=== PATIENT | female | born 1945 | race Caucasian/White ===

== ENCOUNTER 2018-05-02 07:06 | Day surgery (SDC) | payer MEDICARE ==
[~2018-05-02] VITALS: Ht 162.6 cm; Wt 129.3 kg
[2018-05-02] VITALS (7 sets, daily range): BP systolic 103–124; BP diastolic 48–63; PULSE 71–88; TEMP 97.3–98.4
[2018-05-02 08:14] LABS: CALCIUM 11.1 mg/dL (8.4-10.2); CREATININE, serum 0.74 mg/dL (0.52-1.25); POTASSIUM 4.6 mmol/L (3.4-5.0)
[2018-05-02] MEDS ORDERED: GLUCOSAMINE & C1 CA2 PO (08:19)
[2018-05-02] MEDS ORDERED: NATURAL E400 IU PO (08:20)
[2018-05-02] MEDS ORDERED: LEXAPRO 10MG10 MG PO (08:20)
[2018-05-02] MEDS ORDERED: ZANTAC 150150 MG PO (08:21)
[2018-05-02] MEDS ORDERED: LIPITOR 10MG10 MG PO (08:21)
[2018-05-02] MEDS ORDERED: MOBIC15 MG PO (08:21)
[2018-05-02] MEDS ORDERED: PRINZIDE 12.5 M1 TA1 PO (08:22)
[2018-05-02] MEDS ORDERED: ULTRAM 50MG TAB50 MG PO (08:23)
[2018-05-02] MEDS ORDERED: NORVASC2.5 MG PO (08:23)
[2018-05-02] MEDS ORDERED: TYLENOL 500MG500 MG PO (08:24)
--- NOTE | 2018-05-02 08:25 | NUR ---
TO RM AT 0736 FROM RADIOLOGY - WILL RETURN AT 1000 CALL LIGHT IN REACH FAMILY AT BEDSIDE.
--- NOTE | 2018-05-02 10:59 | NUR ---
Initial visit; Patient thanked tram operator for offering encouragement and prayer prior to her surgical procedure.
--- NOTE | 2018-05-02 15:25 | NUR ---
TO RM 8 PER CART FROM PACU. ALERT ORIENTED X3, TALKING TO STAFF AND . ACOSTA SET UNDER ARM CLEAN DRY INTACT. C/O MILD PAIN 2/10. DENIES NAUSEA AT THIS TIME.
--- NOTE | 2018-05-02 15:30 | NUR ---
RECEIVED WATER AND TAKING SIPS. AND GRAND KIDS AT BEDSIDE.
[2018-05-02] MEDS ORDERED: NORCO 325 MG-51 TAB PO (15:44)
[2018-05-02] MEDS ORDERED: MOTRIN 600600 MG/TAB PO (15:45)
[2018-05-02] MEDS ORDERED: COLACE 100100 MG/CAP PO (15:45)
--- NOTE | 2018-05-02 15:45 | NUR ---
TOLERATING WATER FINE. RECEIVED JACKELINE. PUDDING.
--- NOTE | 2018-05-02 16:00 | NUR ---
PATIENT SLEEPING QUIETLY
--- NOTE | 2018-05-02 16:22 | NUR ---
UP AMBULATED TO BATHROOM. VOIDED AND TOLERATED WELL.
--- NOTE | 2018-05-02 16:30 | NUR ---
RECEIVED DISCHARGE INSTRUCTIONS AND VERBALIZED UNDERSTANDING. DISCONTINUED IV AND INT- CATHETER INTACT.
--- NOTE | 2018-05-02 16:55 | NUR ---
DISCHARGED PER WC BY NURSING STAFF TO PRIVATE CAR IN CARE OF -BUD
== END 2018-05-02 17:04 | disposition home or self-care (01) ==
LOC: SDCO 07:06
PROVIDERS: Nurse Anesthetist, Certified Registered
DX: C50.912 Malignant neoplasm of unspecified site of left female breast (principal); E78.5 Hyperlipidemia, unspecified; I10 Essential (primary) hypertension; M19.90 Unspecified osteoarthritis, unspecified site; F41.9 Anxiety disorder, unspecified; Z85.828 Personal history of other malignant neoplasm of skin; Z85.3 Personal history of malignant neoplasm of breast; Z80.51 Family history of malignant neoplasm of kidney; Z82.3 Family history of stroke; Z82.49 Family history of ischemic heart disease and other diseases of the circulatory system
CPT/HCPCS: A9541; J0690; J1100; J1170; J2250; J2405; J2704; J2795; J3010; J7120

== ENCOUNTER → 2020-04-19 | Outpatient (CLI) | payer MEDICARE ==
[~2020-04-19] MED LIST: COLACE 100100 MG/CAP PO; GLUCOSAMINE & C1 CA2 PO; LEXAPRO 10MG10 MG PO; LIPITOR 10MG10 MG PO; MOBIC15 MG PO; MOTRIN 600600 MG/TAB PO; NATURAL E400 IU PO; NORCO 325 MG-51 TAB PO; NORVASC2.5 MG PO; PRINZIDE 12.5 M1 TA1 PO; TYLENOL 500MG500 MG PO; ULTRAM 50MG TAB50 MG PO; ZANTAC 150150 MG PO
== END ==
LOC: COL.RAD 08:45
DX: C50.919 Malignant neoplasm of unspecified site of unspecified female breast (principal)
CPT/HCPCS: A9503; Q9967

== ENCOUNTER → 2021-05-23 | Outpatient (CLI) | payer MEDICARE | LOC: COL.RAD 09:54 | DX: E21.0 Primary hyperparathyroidism (principal) | CPT/HCPCS: A9500 ==